=== PATIENT | male | born 1985 | race Caucasian/White ===

== ENCOUNTER 2016-12-13 18:59 | Emergency (ER) | payer BC ==
--- NOTE | 2016-12-13 19:05 | EDM.PDOC ---
ED HPI GENERAL MEDICAL PROBLEM - General Chief Complaint: Upper Extremity Injury/Pain Stated Complaint: LACERATION FINGER Time Seen by Provider: 12/13/16 19:02 - History of Present Illness INITIAL COMMENTS - FREE TEXT/NARRATIVE: HISTORY AND PHYSICAL: History of present illness: Patient is 31-year-old white male sensory concern of acute injury to his right hand that occurred when a toolbox fell onto his hand he sustained a abrasion and superficial laceration majorities trauma and pelvis first digit he states he is up-to-date on his tetanus Review of systems: As per history of present illness and below otherwise all systems reviewed and negative. Past medical history: As per history of present illness and as reviewed below otherwise noncontributory. Surgical history: As per history of present illness and as reviewed below otherwise noncontributory. Social history: No reported history of drug or alcohol abuse. Family history: As per history of present illness and as reviewed below otherwise noncontributory. Physical exam: HEENT: Atraumatic, normocephalic, pupils reactive, negative for conjunctival pallor or scleral icterus, mucous membranes moist, throat clear, neck supple, nontender, trachea midline. Lungs: Clear to auscultation, breath sounds equal bilaterally, chest nontender. Heart: S1S2, regular, negative for clicks, rubs, or JVD. Abdomen: Soft, nondistended, nontender. Negative for masses or hepatosplenomegaly. Negative for costovertebral tenderness. Pelvis: Stable nontender. Genitourinary: Deferred. Rectal: Deferred. Extremities: Patient has an abrasion with a small avulsion first digit of his right hand CMS neurovascular exam is unremarkable there is no tendon injury Neuro: Awake, alert, oriented. Cranial nerves II through XII unremarkable. Cerebellum unremarkable. Motor and sensory unremarkable throughout. Exam nonfocal. Diagnostics: X-ray right hand Therapeutics: Wound was irrigated with copious amounts of water dressed with bacitracin and bulky dressing Impression: #1 acute hand injury Definitive disposition and diagnosis as appropriate pending reevaluation and review of above. - Related Data Allergies Allergy/AdvReac Type Severity Reaction Status Date / Time No Known Allergies Allergy Verified 12/13/16 19:01 Home Meds: Home Meds . [No Known Home Meds] 12/13/16 [History] Review of Systems - Review of Systems Review Of Systems: ROS reveals no pertinent complaints other than HPI. ED EXAM, GENERAL - Physical Exam Exam: See Below (See dictation) Course - Vital Signs Last Recorded V/S: Last Vital Signs Temp 36.4 C 12/13/16 19:04 Pulse 74 12/13/16 19:04 Resp 16 12/13/16 19:04 BP 110/86 12/13/16 19:04 Pulse Ox 98 12/13/16 19:04 - Orders/Labs/Meds Orders: Active Orders 24 hr Category Date Time Status Hand Comp Min 3V Rt [CR] Stat Exams 12/13/16 19:03 Taken Departure - Departure Time of Disposition: 19:44 Disposition: Home, Self-Care 01 Condition: Good Clinical Impression: Hand fracture - Discharge Information Forms: ED Department Discharge Additional Instructions: The following information is given to patients seen in the emergency department who are being discharged to home. This information is to outline your options for follow-up care. We provide all patients seen in our emergency department with a follow-up referral. The need for follow-up, as well as the timing and circumstances, are variable depending upon the specifics of your emergency department visit. If you don't have a primary care physician on staff, we will provide you with a referral. We always advise you to contact your personal physician following an emergency department visit to inform them of the circumstance of the visit and for follow-up with them and/or the need for any referrals to a consulting specialist. The emergency department will also refer you to a specialist when appropriate. This referral assures that you have the opportunity for followup care with a specialist. All of these measure are taken in an effort to provide you with optimal care, which includes your followup. Under all circumstances we always encourage you to contact your private physician who remains a resource for coordinating your care. When calling for followup care, please make the office aware that this follow-up is from your recent emergency room visit. If for any reason you are refused follow-up, please contact the [facility] emergency department at and asked to speak to the emergency department charge nurse. [facility] specialty clinic[facility]Plastics [address] [place] [id number] Keflex as prescribed point as directed and call to schedule appointment with hand surgeon return as needed as discussed - My Orders Last 24 Hours: My Active Orders 12/13/16 19:03 Hand Comp Min 3V Rt [CR] Stat - Assessment/Plan Last 24 Hours: My Active Orders 12/13/16 19:03 Hand Comp Min 3V Rt [CR] Stat
--- NOTE | 2016-12-14 15:57 | CR ---
EXAM DATE: 12/13/16 PATIENT'S AGE: 31 Patient: SUZANNE VILLELA Facility: [place], [place] Site . Site : [id number] Study: XRay Extremity hand [id number]/1/2017 7:35:06 PM Ordering Physician: Kera Garza Final Report: INDICATION: Crushing injury, right hand. TECHNIQUE: Hand radiograph 3 views COMPARISON: None FINDINGS: Comminuted fracture of right 1st distal phalanx. Fracture lines do not appear to extend to the IP joint. No radiopaque soft tissue foreign body. No additional fracture identified in the right hand. IMPRESSION: 1. Comminuted fracture, right 1st distal phalanx. Dictated by Parth Moulton MD @ 12/13/2016 7:57:49 PM Dictated by: Parth Moulton MD @ 12/13/2016 19:58:03 (Electronic Signature) Report Signed by Proxy. [email or web address]
== END 2016-12-13 19:52 | disposition home or self-care (01) ==
LOC: MW.ED 18:59
DX: S62.521A Displaced fracture of distal phalanx of right thumb, initial encounter for closed fracture (principal); W20.8XXA Other cause of strike by thrown, projected or falling object, initial encounter
CPT/HCPCS: 73130-26-RT; 73130-RT; 99282; 99283